=== PATIENT | male | born 1990 | race African-American/Black ===

== ENCOUNTER 2020-07-19 16:42 | Emergency (ER) | payer MEDICAID ==
[~2020-07-19] VITALS: Ht 185.4 cm; Wt 73.0 kg
[2020-07-19] MEDS ORDERED: ACETAMINOPHEN 325MG TABLET PO ONE (17:30)
[2020-07-19 17:59] LABS: CLARITY URINE CLOUDY (CLEAR); COLOR URINE YELLOW (YELLOW); KETONES URINE TRACE (NEGATIVE); LEUKOCYTE ESTERASE URINE TRACE (NEGATIVE); NITRITE URINE NEGATIVE (NEGATIVE); OCCULT BLOOD URINE NEGATIVE (NEGATIVE); PROTEIN URINE NEGATIVE (NEGATIVE)
[2020-07-19 18:34] LABS: *AMPHETAMINES SCREEN URINE NEGATIVE (NEGATIVE); *BARBITURATES SCREEN URINE NEGATIVE (NEGATIVE); CANNABINOID URINE SCREEN PRESUMTIVE POSITIVE (NEGATIVE); METHADONE URINE SCREEN NEGATIVE (NEGATIVE); OPIATES URINE SCREEN NEGATIVE (NEGATIVE); PHENCYCLIDINE URINE SCREEN NEGATIVE (NEGATIVE)
[2020-07-19 18:35] LABS: *BENZODIAZEPINES SCREEN URINE NEGATIVE (NEGATIVE); *COCAINE SCREEN URINE NEGATIVE (NEGATIVE)
[2020-07-19 18:44] LABS: CHLORIDE 103 mEq/L (98-107)
[2020-07-19 19:12] LABS: HEMATOCRIT. 39.8 % (42.0-52.0); HEMOGLOBIN. 12.6 g/dL (14.0-18.0); MEAN CORPUSCULAR HEMOGLOBIN 23.2 pg (28.0-32.0); MEAN CORPUSCULAR VOLUME 73.3 fL (80.0-94.0); MEAN PLATELET VOLUME 8.3 fl (7.4-10.4); PLATELET 335 x1000/uL (130-400); RED BLOOD CELL COUNT 5.42 mill/uL (4.7-6.1); RED CELL DISTRIBUTION WIDTH 13.9 % (11.6-14.6)
[2020-07-19] MEDS ORDERED: LIDOCAINE HCL 1% 20ML VIAL (Pyxis) INJ INFIL ONE (19:15)
[2020-07-19] MEDS ORDERED: DOXYCYCLINE HYCLATE 100MG CAPSULE PO ONE (19:15)
[2020-07-19] MEDS ORDERED: CEFTRIAXONE SODIUM 250 MG/VIAL IM ONE (19:15)
[2020-07-19 19:38] LABS: PLATELET ESTIMATE NORMAL
[2020-07-19 19:51] VITALS: BP 121/68
[2020-07-23 04:06] LABS: NEISSERIA GONORRHOEAE NAA Negative (Negative)
== END 2020-07-19 19:54 | disposition home or self-care (01) ==
LOC: ER 16:42
DX: N45.1 Epididymitis (principal)
CPT/HCPCS: 36415; 76870; 80053; 80305; 81003; 85025; 87491; 87591; 93005; 93976; 96372; 99285; J0696; J3490

== ENCOUNTER 2020-07-21 15:15 | Emergency (ER) | payer MEDICAID ==
[~2020-07-21] VITALS: Ht 185.4 cm; Wt 84.0 kg
[2020-07-21 16:50] VITALS: BP 120/70
== END 2020-07-21 16:50 | disposition home or self-care (01) ==
LOC: ER 15:15
DX: Z76.0 Encounter for issue of repeat prescription (principal); N45.1 Epididymitis; I10 Essential (primary) hypertension; F12.90 Cannabis use, unspecified, uncomplicated
CPT/HCPCS: 99283

== ENCOUNTER 2020-08-20 11:42 | Emergency (ER) | payer MEDICAID ==
[~2020-08-20] VITALS: Ht 185.4 cm; Wt 81.6 kg
[2020-08-20 11:53] VITALS: BP 150/95
[2020-08-20 13:29] LABS: CLARITY URINE CLEAR (CLEAR); COLOR URINE YELLOW (YELLOW); KETONES URINE NEGATIVE (NEGATIVE); LEUKOCYTE ESTERASE URINE NEGATIVE (NEGATIVE); NITRITE URINE NEGATIVE (NEGATIVE); OCCULT BLOOD URINE 2+ (NEGATIVE); PH URINE >=9.0 (4.5-8.0); PROTEIN URINE NEGATIVE (NEGATIVE); SPECIFIC GRAVITY URINE 1.018 (1.005-1.030); UROBILINOGEN URINE 0.2 E.U./dL (0.2-1.0)
[2020-08-20] MEDS ORDERED: AZITHROMYCIN 500 MG TABLET PO ONE (13:30)
[2020-08-20] MEDS ORDERED: CEFTRIAXONE SODIUM 250 MG/VIAL IM ONE (13:30)
== END 2020-08-20 14:00 | disposition home or self-care (01) ==
LOC: ER 11:52
DX: N43.3 Hydrocele, unspecified (principal); A64 Unspecified sexually transmitted disease; N44.2 Benign cyst of testis
CPT/HCPCS: 76870; 81003; 87086; 93976; 96372; 99284; J0696

== ENCOUNTER 2020-10-31 09:26 | Emergency (ER) | payer MEDICAID ==
[~2020-10-31] VITALS: Ht 182.9 cm; Wt 77.0 kg
[2020-10-31] MEDS ORDERED: AZITHROMYCIN 500 MG TABLET PO ONE (11:00)
[2020-10-31] MEDS ORDERED: CEFTRIAXONE SODIUM 250 MG/VIAL IM ONE (11:00)
[2020-10-31 12:26] VITALS: BP 123/85
[2020-10-31 13:30] LABS: CLARITY URINE CLEAR (CLEAR); COLOR URINE DARK YELLOW (YELLOW); KETONES URINE TRACE (NEGATIVE); LEUKOCYTE ESTERASE URINE TRACE (NEGATIVE); NITRITE URINE NEGATIVE (NEGATIVE); OCCULT BLOOD URINE NEGATIVE (NEGATIVE); PROTEIN URINE TRACE (NEGATIVE); SPECIFIC GRAVITY URINE 1.034 (1.005-1.030)
[2020-11-02 04:07] LABS: NEISSERIA GONORRHOEAE NAA Negative (Negative)
== END 2020-10-31 12:27 | disposition home or self-care (01) ==
LOC: ER 09:38
DX: Z20.2 Contact with and (suspected) exposure to infections with a predominantly sexual mode of transmission (principal); R30.0 Dysuria
CPT/HCPCS: 81003; 87491; 87591; 96372; 99283; J0696

== ENCOUNTER 2020-12-04 19:36 | Emergency (ER) | payer MEDICAID ==
[~2020-12-04] VITALS: Ht 185.4 cm; Wt 87.0 kg
[2020-12-04 21:15] VITALS: BP 121/88
== END 2020-12-04 21:50 | disposition home or self-care (01) ==
LOC: ER 19:36
DX: R21 Rash and other nonspecific skin eruption (principal); F12.10 Cannabis abuse, uncomplicated
CPT/HCPCS: 99281; 99283

== ENCOUNTER 2021-03-07 14:21 | Emergency (ER) | payer MEDICAID ==
[~2021-03-07] VITALS: Ht 185.4 cm; Wt 81.8 kg
[2021-03-07] MEDS ORDERED: LIDOCAINE HCL 1% 20ML VIAL (Pyxis) INJ INFIL ONE (16:45)
[2021-03-07] MEDS ORDERED: CEFTRIAXONE SODIUM 250 MG/VIAL IM ONE (16:45)
[2021-03-07] MEDS ORDERED: DOXY100T2 MT (16:55)
[2021-03-07 17:32] LABS: CLARITY URINE CLEAR (CLEAR); COLOR URINE YELLOW (YELLOW); KETONES URINE NEGATIVE (NEGATIVE); LEUKOCYTE ESTERASE URINE NEGATIVE (NEGATIVE); NITRITE URINE NEGATIVE (NEGATIVE); OCCULT BLOOD URINE NEGATIVE (NEGATIVE); PROTEIN URINE NEGATIVE (NEGATIVE); SPECIFIC GRAVITY URINE 1.011 (1.005-1.030); UROBILINOGEN URINE 0.2 E.U./dL (0.2-1.0)
[2021-03-07 18:19] VITALS: BP 133/92
[2021-03-12 04:07] LABS: NEISSERIA GONORRHOEAE NAA Negative (Negative)
== END 2021-03-07 18:18 | disposition home or self-care (01) ==
LOC: ER 14:21
DX: Z20.2 Contact with and (suspected) exposure to infections with a predominantly sexual mode of transmission (principal); F12.90 Cannabis use, unspecified, uncomplicated
CPT/HCPCS: 81003; 87491; 87591; 96372; 99283; J0696; J3490

== ENCOUNTER 2021-07-30 12:41 | Emergency (ER) | payer MEDICAID ==
[~2021-07-30] VITALS: Ht 182.9 cm; Wt 82.0 kg
[~2021-07-30 12:41] MED LIST: DOXY100T2 MT
[2021-07-30 12:59] VITALS: BP 141/80
[2021-07-30] MEDS ORDERED: LIDOCAINE HCL 1% 20ML VIAL (Pyxis) INJ INFIL ONE (14:00)
[2021-07-30] MEDS ORDERED: CEFTRIAXONE SODIUM 500 MG/VIAL IM ONE (14:00)
[2021-07-30] MEDS ORDERED: DOXYCYCLINE HYCLATE 100MG CAPSULE PO ONE (14:00)
[2021-07-30 14:25] LABS: CLARITY URINE CLEAR (CLEAR); COLOR URINE YELLOW (YELLOW); KETONES URINE TRACE (NEGATIVE); LEUKOCYTE ESTERASE URINE NEGATIVE (NEGATIVE); NITRITE URINE NEGATIVE (NEGATIVE); OCCULT BLOOD URINE NEGATIVE (NEGATIVE); PROTEIN URINE TRACE (NEGATIVE); SPECIFIC GRAVITY URINE 1.028 (1.005-1.030)
[2021-07-30] MEDS ORDERED: DOXY100C2 MT (14:30)
[2021-08-02 04:07] LABS: NEISSERIA GONORRHOEAE NAA Negative (Negative)
== END 2021-07-30 15:54 | disposition home or self-care (01) ==
LOC: ER 12:41
DX: Z20.2 Contact with and (suspected) exposure to infections with a predominantly sexual mode of transmission (principal)
CPT/HCPCS: 81003; 87491; 87591; 96372; 99283; J0696; J3490

== ENCOUNTER 2021-09-16 15:09 | Emergency (ER) | payer MEDICAID ==
[~2021-09-16] VITALS: Ht 185.4 cm; Wt 81.0 kg
[~2021-09-16 15:09] MED LIST changes: +DOXY100C5 MT
[2021-09-16] MEDS ORDERED: PENICILLIN G BENZATHINE 2,400,000 UNITS/4ML SYR IM ONE (18:15)
[2021-09-16] MEDS ORDERED: ACYC200C31 MT (19:48)
[2021-09-16 21:27] VITALS: BP 138/78
[2021-09-19 09:09] LABS: NEISSERIA GONORRHOEAE NAA Negative (Negative)
== END 2021-09-16 21:28 | disposition home or self-care (01) ==
LOC: ER 15:09
DX: A51.0 Primary genital syphilis (principal); R03.0 Elevated blood-pressure reading, without diagnosis of hypertension
CPT/HCPCS: 87491; 87591; 96372; 99283; J0561